=== PATIENT | female | born 1940 | race Caucasian/White ===

== ENCOUNTER 2020-01-03 12:14 | Inpatient (IN) | payer MEDICARE, OTHER ==
[2020-01-03] MEDS ORDERED: Labetalol HCl 100 MG/20 ML VIAL ONE (13:31)
--- NOTE | 2020-01-03 13:48 | RAD ---
Chest AP view INDICATION: Altered mental status COMPARISON: November 04, 2013 FINDINGS: Lungs: Chronic lung changes are stable. Cardiac silhouette: The cardiomediastinal silhouette appears within normal limits. Pulmonary vasculature: Normal Pleural spaces: No pleural effusion or pneumothorax is demonstrated. Upper abdomen: No abnormality seen. Osseous structures: No acute osseous abnormality. Additional findings: Cholecystectomy clips are present in the right upper quadrant of the abdomen. IMPRESSION: No acute cardiopulmonary abnormality.
[2020-01-03 14:03] LABS: Hemoglobin 17.5 g/dL (12.0-16.0); Mean Corpuscular HGB CONC 33.9 g/dL (32.0-36.0); Mean Corpuscular Hemoglobin 29.3 pg (27.0-31.0); Mean Corpuscular Volume 86.6 fL (78.0-98.0); Mean Platelet Volume 8.9 fL (7.4-10.4); Platelet Count 240 thou/uL (130-400); Red Blood Cell (RBC) Count 5.97 mill/uL (4.20-5.40); White Blood Cell (WBC) Count 20.9 thou/uL (4.8-10.8)
[2020-01-03 14:17] LABS: ALT (SGPT) 10 U/L (8-55); AST (SGOT) 22 U/L (5-34); Albumin 4.4 g/dL (3.4-4.8); Alkaline Phosphatase 106 U/L (40-110); Anion Gap 16 mmol/L (10-20); BUN (Urea Nitrogen) 16 mg/dL (9.8-20.1); Bilirubin, Total 1.5 mg/dL (0.2-1.2); Calc. Creatinine Clearance 0 mL/min (70-130); Calcium 9.4 mg/dL (7.8-10.44); Carbon Dioxide 22 mmol/L (23-31); Chloride 105 mmol/L (98-107); Estimated GFR-MDRD 41; Globulin 3.5 g/dL (2.4-3.5); Glucose 108 mg/dL (83-110); Protein, Total 7.9 g/dL (6.0-8.3); Sodium 140 mmol/L (136-145)
[2020-01-03 14:19] LABS: Acetaminophen Less than 6.0 mcg/mL (10.0-30.0); Alcohol Less than 10 mg/dL (Less than 10); CK (CPK) 322 U/L (29-168); Lipase 41 U/L (8-78); Salicylate Less than 8.0 mg/dL (15.0-30.0)
--- NOTE | 2020-01-03 14:24 | CT ---
CT BRAIN NONCONTRAST: DATE: 01/03/2020 HISTORY: 79-year-old female with altered mental status FINDINGS: There is no evidence of acute intra-axial or extra-axial hemorrhage. There is no midline shift or any other mass effect. There is no extra-axial fluid collection. There is no evidence of obstructive hydrocephalus. Calvarium is intact. There is a small old infarction at the inferior aspect of right c erebellar hemisphere. This was present on previous MRI of 12/27/2009. IMPRESSION: 1. No acute intracranial findings. 2. 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
[2020-01-03 14:39] LABS: Band 9 % (5-11); CKMB 4.3 ng/mL (0-6.6); Lymphocytes 4 % (21-51); MDiff Complete? YES; Monocytes 10 % (0-10); Neutrophil 71 % (42-75); Platelet Morphology Comment Appears Adequate; Polychromasia SLIGHT = 2-3 cells (100X) (0-2/hpf); Reactive Lymphocytes 6 % (0-10)
[2020-01-03 15:03] LABS: Bacteria/HPF None Seen HPF (None Seen); Bilirubin Negative (Negative); Blood, Urine 2+ (Negative); Clarity Clear (Clear); Glucose, Urine (Dipstick) 100 mg/dL (Negative); Ketone, Urine 20 mg/dL (Negative); Leukocyte Negative Leu/uL (Negative); Nitrite Negative (Negative); Protein, Urine (Dipstick) 600 mg/dL (Neg-Trace); Specific Gravity, Urine 1.018 (1.002-1.036); Squamous Epithelial None Seen HPF (0-3); Urobilinogen Normal mg/dL (Less than 2)
[2020-01-03] MEDS ORDERED: hydrALAZINE 20 MG/ML VIAL ONE (15:07)
[2020-01-03 15:08] LABS: Amphetamine Not Detected (NotDetected); Barbiturates Screen Not Detected (NotDetected); Benzodiazepine Screen Not Detected (NotDetected); Cocaine Metabolite Screen Not Detected (NotDetected); Medtox Control Line Valid? VALID (VALID); Medtox Reader # READER 4; Methadone Not Detected (NotDetected); Methamphetamine Not Detected (NotDetected); Opiate Screen Detected (NotDetected); Oxycodone Screen Not Detected (NotDetected); Phencyclidine (PCP) Not Detected (NotDetected); THC/Cannabinoid Screen Not Detected (NotDetected); Tricyclic Screen Not Detected (NotDetected)
[2020-01-03] MEDS ORDERED: Acetaminophen 650 MG Suppository PR PRN (17:14)
[2020-01-03] MEDS ORDERED: Potassium Chloride 20 MEQ in Premix Bag 1 BAG IVPB SCH ×2 (17:15→22:15)
[2020-01-03] MEDS ORDERED: Naloxone HCl 0.4 mg/ml Vial ONE (17:26)
[2020-01-03] MEDS ORDERED: Naloxone HCl 0.4 mg/ml Vial IV SCH (17:30)
[2020-01-03 17:40] LABS: Actual Bicarbonate (HCO3a) 16.6 mEq/L (22-28); Analyzer IN Cardio ER; Base Excess (BEa) -3.2 mEq/L (-2.0 to +3.0); Calcium, Ionized (arterial) 1.08 mmol/L (1.12-1.30); Carboxyhemoglobin (COHb) 0.7 gm% (0.0-3.0); Hemoglobin (Hb) 16.1 g/dL (12.0-16.0); O2 Tension (PaO2), arterial 93.8 mmHg (> 70.0); Potassium - ABG Lab 3.15 mmol/L (3.70-5.30); pH, Arterial 7.53 (7.35-7.45)
[2020-01-03 17:43] LABS: ALV-art Gradient 30.555 (0-20); CO2 Tension 20.3 mmHg (35.0-45.0); Puncture Site RRA
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
[2020-01-03 18:25] LABS: CKMB 4.2 ng/mL (0-6.6)
[2020-01-03 22:26] VITALS: BMI 25.7
[2020-01-03] MEDS: Famotidine/PF 20 mg/2ml Vial SLOW IVP SCH (22:46)
[2020-01-03 23:13] LABS: CKMB 5.8 ng/mL (0-6.6)
[2020-01-04] MEDS ORDERED: Potassium Chloride 20 MEQ TAB PO SCH (00:15)
[2020-01-04] MEDS ORDERED: Ondansetron ODT 4 MG TAB PO PRN (00:28)
[2020-01-04] MEDS: Sodium Chloride 0.9% 1,000 ML IV SCH ×2 (00:34→18:10)
[2020-01-04] MEDS: hydrALAZINE 20 MG/ML VIAL SLOW IVP PRN ×2 (00:35→08:13)
[2020-01-04 05:21] LABS: #Basophils 0.1 thou/uL (0.0-0.2); #Eosinphils 0.1 thou/uL (0.0-0.7); #Lymphocytes 3.2 thou/uL (1.20-3.40); #Monocytes 1.3 thou/uL (0.11-0.59); #Neutrophils 14.3 thou/uL (1.40-6.50); %Basophils 0.4 % (0.0-1.0); %Eosinophils 0.3 % (0.0-10.0); %Lymphocytes 16.6 % (21.0-51.0); %Monocytes 6.9 % (0.0-10.0); %Neutrophils 75.8 % (42.0-75.0); Hemoglobin 15.9 g/dL (12.0-16.0); Mean Corpuscular HGB CONC 34.3 g/dL (32.0-36.0); Mean Corpuscular Hemoglobin 29.6 pg (27.0-31.0); Mean Corpuscular Volume 86.4 fL (78.0-98.0); Mean Platelet Volume 8.5 fL (7.4-10.4); Platelet Count 227 thou/uL (130-400); RBC Distribution Width 13.2 % (11.5-14.5); Red Blood Cell (RBC) Count 5.37 mill/uL (4.20-5.40); White Blood Cell (WBC) Count 18.9 thou/uL (4.8-10.8)
[2020-01-04 06:09] LABS: ALT (SGPT) 12 U/L (8-55); AST (SGOT) 24 U/L (5-34); Albumin 4.2 g/dL (3.4-4.8); Alkaline Phosphatase 88 U/L (40-110); Anion Gap 18 mmol/L (10-20); BUN (Urea Nitrogen) 15 mg/dL (9.8-20.1); Bilirubin, Total 1.3 mg/dL (0.2-1.2); Calc. Creatinine Clearance 54 mL/min (70-130); Calcium 9.1 mg/dL (7.8-10.44); Carbon Dioxide 17 mmol/L (23-31); Chloride 108 mmol/L (98-107); Estimated GFR-MDRD 74; Glucose 115 mg/dL (83-110); Potassium 3.3 mmol/L (3.5-5.1); Protein, Total 7.2 g/dL (6.0-8.3); Sodium 140 mmol/L (136-145)
[2020-01-04] MEDS: Famotidine/PF 20 mg/2ml Vial SLOW IVP SCH (08:13)
[2020-01-04] MEDS ORDERED: cloNIDine 0.1mg/24 Hour PATCH TD SCH (09:00)
[2020-01-04] MEDS ORDERED: Labetalol HCl 100 MG/20 ML VIAL SLOW IVP SCH (09:00)
[2020-01-04] MEDS: Amlodipine 10 MG TAB PO SCH (09:19)
[2020-01-04] MEDS: Loperamide HCl 2 MG CAP PO PRN ×2 (09:45→20:18)
[2020-01-04 16:04] LABS: SARS-CoV-2 MS2 Positive; SARS-CoV-2 N Gene Negative; SARS-CoV-2 S Gene Negative; SARS-CoV-2 by NAA Not Detected (NotDetected); SARS-CoV-2 orf1ab Negative
--- NOTE | 2020-01-04 16:20 | PDOC.HOSPP ---
- Subjective Subjective: reports of having multiple episode of diarrhea. lethargy, no appetite d/w RN - Objective Vital Signs & Weight: Vital Signs (12 hours) Temp Pulse Resp BP Pulse Ox 01/04/20 15:31 98 F 104 H 16 136/82 98 01/04/20 12:08 98.1 F 102 H 29 H 153/70 H 97 01/04/20 09:21 81 162/84 H 01/04/20 09:19 81 01/04/20 07:48 98.5 F 68 18 186/90 H 94 L 01/04/20 05:56 142/82 H Weight Weight 123 lb I&O: 01/03/20 01/04/20 01/05/20 06:59 06:59 06:59 Intake Total 730 Balance 730 Result Diagrams: 01/04/20 04:58 01/04/20 04:58 Hospitalist ROS - Medication Medications: Active Medications Generic Name Dose Route Start Last Admin Trade Name Freq PRN Reason Stop Dose Admin Amlodipine Besylate 10 mg 01/04/20 09:00 01/04/20 09:19 Norvasc PO 10 mg DAILY PRABHJOT Administration Clonidine 0.1 mg 01/04/20 09:00 01/04/20 09:45 Qrejdgsr-Dpx-7 Patch TD 0.1 mg Q7DAYS PRABHJOT Administration Hydralazine HCl 10 mg 01/04/20 00:02 01/04/20 08:13 Apresoline SLOW IVP 10 mg Q4H PRN Administration SBP Greater Than 180 Sodium Chloride 1,000 mls @ 70 mls/hr 01/04/20 00:15 01/04/20 00:34 Normal Saline 0.9% IV 1,000 mls .[id number] PRABHJOT Administration Loperamide HCl 2 mg 01/04/20 09:29 01/04/20 09:45 Imodium PO 2 mg Q4H PRN Administration Diarrhea/Loose Stools Hosp A/P - Plan Physical Exam General Appearance: NAD, lethargy Eye - other findings: Bilateral pint point pupils ENT: normocephalic atraumatic Neck: supple, no lymphadenopathy Heart: RRR, no murmur, no gallops, no rubs Respiratory: CTAB, no wheezes, no rales, no ronchi, normal chest expansion Gastrointestinal: soft, non-tender, non-distended, normal bowel sounds Gastrointestinal - other findings: grimace elicited with palpation of epigastric region Extremities: no edema Skin: normal turgor, no lesions, no rashes Neurological - other findings: lethargic, responsive to sternal rub and at times loud voice Psychiatric: normal affect, normal behavior, A&O x 3 Assessment/Plan: #Acute toxic encephalopathy likely secondary to pain medications #Diarrhea #Mild Rhabdo #PARUL - resolved #Leukocytosis - trending down #HTN #GERD #Dyslipidemia #Hx of narcotic abuse #Hx of CVA #Hypokalemia - resolved. #mild Elevated trop - no chest pain 01/04/20 Will advance diet as tolerated. PT eval. Minimize narcot as much as possible. Pt has multiple episode of diarrhea, appears to be nonfectious, C diff negative , stool studies unremarkable. Continue support cares. rpt labs in AM.
[2020-01-05] MEDS: hydrALAZINE 20 MG/ML VIAL SLOW IVP PRN (03:19)
[2020-01-05] MEDS: Acetaminophen 325 MG TAB PO PRN (03:24)
[2020-01-05 05:07] LABS: ALT (SGPT) 12 U/L (8-55); AST (SGOT) 19 U/L (5-34); Albumin 3.9 g/dL (3.4-4.8); Alkaline Phosphatase 78 U/L (40-110); Anion Gap 16 mmol/L (10-20); BUN (Urea Nitrogen) 10 mg/dL (9.8-20.1); Bilirubin, Total 1.7 mg/dL (0.2-1.2); CRP (Inflammatory) Less than 0.50 mg/dL (= or < 0.5); Calc. Creatinine Clearance 58 mL/min (70-130); Calcium 8.4 mg/dL (7.8-10.44); Carbon Dioxide 20 mmol/L (23-31); Chloride 103 mmol/L (98-107); Estimated GFR-MDRD 81; Globulin 2.6 g/dL (2.4-3.5); Glucose 107 mg/dL (83-110); Magnesium 1.6 mg/dL (1.6-2.6); Protein, Total 6.5 g/dL (6.0-8.3); Sodium 136 mmol/L (136-145)
[2020-01-05 05:13] LABS: Potassium 2.7 mmol/L (3.5-5.1)
[2020-01-05 05:18] LABS: #Eosinphils 0.1 thou/uL (0.0-0.7); #Lymphocytes 4.2 thou/uL (1.20-3.40); #Monocytes 1.5 thou/uL (0.11-0.59); %Basophils 0.2 % (0.0-1.0); %Eosinophils 0.4 % (0.0-10.0); %Lymphocytes 23.7 % (21.0-51.0); %Monocytes 8.2 % (0.0-10.0); %Neutrophils 67.5 % (42.0-75.0); Mean Corpuscular HGB CONC 33.4 g/dL (32.0-36.0); Mean Corpuscular Hemoglobin 29.1 pg (27.0-31.0); Mean Platelet Volume 8.5 fL (7.4-10.4); Platelet Count 205 thou/uL (130-400); Red Blood Cell (RBC) Count 5.17 mill/uL (4.20-5.40); White Blood Cell (WBC) Count 17.7 thou/uL (4.8-10.8)
[2020-01-05] MEDS ORDERED: Potassium Chloride 20 MEQ TAB PO SCH ×2 (05:45→07:30)
[2020-01-05] MEDS ORDERED: Magnesium Sulfate 4 GM in Sodium Chloride 0.9% 250 ML 250 ML IVPB SCH (07:30)
[2020-01-05] MEDS: Gabapentin 300 MG CAP PO SCH ×3 (09:14→20:43)
[2020-01-05] MEDS: Amlodipine 10 MG TAB PO SCH (09:14)
[2020-01-05] MEDS: HYDROcodone/Acetaminophen 5/325 mg Tablet PO PRN ×2 (09:26→20:42)
[2020-01-05] MEDS: Famotidine/PF 20 mg/2ml Vial SLOW IVP SCH (09:34)
[2020-01-05] MEDS: Sodium Chloride 0.9% 1,000 ML IV SCH (09:47)
[2020-01-05 14:10] LABS: Potassium 3.7 mmol/L (3.5-5.1)
--- NOTE | 2020-01-05 14:37 | PDOC.HOSPP ---
- Subjective Subjective: Patient was seen examined at bedside. No acute events overnight. Patient reported that her diarrhea is significantly improved with Imodium. Blood pressure was elevated this morning. BP 198/87. Patient complaining of foot pain. Her white count has been trending down to 17.7. Cultures no growth. - Objective Vital Signs & Weight: Vital Signs (12 hours) Temp Pulse Resp BP Pulse Ox 01/05/20 12:00 97.5 F L 96 22 H 166/70 H 97 01/05/20 10:45 169/72 H 01/05/20 09:14 91 01/05/20 08:00 98.2 F 82 12 198/87 H 96 01/05/20 03:51 98.0 F 95 22 H 156/65 H 97 01/05/20 03:19 74 Weight Weight 123 lb I&O: 01/04/20 01/05/20 01/06/20 06:59 06:59 06:59 Intake Total 3170 Balance 3170 Result Diagrams: 01/05/20 04:30 01/05/20 13:51 Hospitalist ROS - Medication Medications: Active Medications Generic Name Dose Route Start Last Admin Trade Name Freq PRN Reason Stop Dose Admin Acetaminophen 650 mg 01/03/20 17:14 01/05/20 03:24 Tylenol PO 650 mg Q4H PRN Administration Headache/Fever/Mild Pain (1-3) Hydrocodone Bitart/Acetaminophen 1 tab 01/05/20 08:23 01/05/20 09:26 [place] 5/325 PO 1 tab Q4H PRN Administration Moderate to Severe Pain (6-10) Amlodipine Besylate 10 mg 01/04/20 09:00 01/05/20 09:14 Norvasc PO 10 mg DAILY PRABHJOT Administration Clonidine 0.1 mg 01/04/20 09:00 01/04/20 09:45 Rwdvedrg-Dem-2 Patch TD 0.1 mg Q7DAYS PRABHJOT Administration Famotidine 20 mg 01/05/20 09:00 01/05/20 09:34 Pepcid SLOW IVP 20 mg DAILY PRABHJOT Administration Gabapentin 300 mg 01/05/20 09:00 01/05/20 09:14 Neurontin PO 300 mg TID PRABHJOT Administration Hydralazine HCl 10 mg 01/04/20 00:02 01/05/20 03:19 Apresoline SLOW IVP 10 mg Q4H PRN Administration SBP Greater Than 180 Loperamide HCl 2 mg 01/04/20 09:29 01/04/20 20:18 Imodium PO 2 mg Q4H PRN Administration Diarrhea/Loose Stools Sodium Chloride 10 ml 01/03/20 17:14 01/04/20 20:18 Flush - Normal Saline IVF 10 ml Q12H PRN Administration Saline Flush Hosp A/P - Plan Physical Exam General Appearance: NAD, lethargy Eye - other findings: Bilateral pint point pupils ENT: normocephalic atraumatic Neck: supple, no lymphadenopathy Heart: RRR, no murmur, no gallops, no rubs Respiratory: CTAB, no wheezes, no rales, no ronchi, normal chest expansion Gastrointestinal: soft, non-tender, non-distended, normal bowel sounds Gastrointestinal - other findings: grimace elicited with palpation of epigastric region Extremities: no edema Skin: normal turgor, no lesions, no rashes Neurological - other findings: lethargic, responsive to sternal rub and at times loud voice Psychiatric: normal affect, normal behavior, A&O x 3 Assessment/Plan: #Acute toxic encephalopathy likely secondary to pain medications #Diarrhea - noninfectious, resolved #Mild Rhabdo #PARUL - resolved #Leukocytosis - trending down #GERD #Dyslipidemia #Hx of narcotic abuse #Hx of CVA #Hypokalemia - resolved. #mild Elevated trop - no chest pain #Hypertension, essential-blood pressure is uncontrolled #Multiple electrolyte abnormalities including hypokalemia, hypomagnesia 01/05/2020 Diarrhea is has improved. Her white count is trending down. No evidence of infections on stool study. Still have poor p.o. intake. Started on Norvasc for BP control. rpt CBC in AM. PT eval. Replete electrolytes. Follow AM labs 01/04/20 Will advance diet as tolerated. PT eval. Minimize narcotic as much as possible. Pt has multiple episode of diarrhea, appears to be nonfectious, C diff negative , stool studies unremarkable. Continue support cares. rpt labs in AM.
[2020-01-06] MEDS: HYDROcodone/Acetaminophen 5/325 mg Tablet PO PRN ×2 (03:11→14:47)
[2020-01-06 05:11] LABS: #Basophils 0.1 thou/uL (0.0-0.2); #Eosinphils 0.2 thou/uL (0.0-0.7); #Lymphocytes 3.2 thou/uL (1.20-3.40); #Neutrophils 7.3 thou/uL (1.40-6.50); %Basophils 0.7 % (0.0-1.0); %Eosinophils 1.6 % (0.0-10.0); %Lymphocytes 27.2 % (21.0-51.0); %Monocytes 8.4 % (0.0-10.0); %Neutrophils 62.1 % (42.0-75.0); Hemoglobin 14.1 g/dL (12.0-16.0); Mean Corpuscular Hemoglobin 29.6 pg (27.0-31.0); Mean Corpuscular Volume 87.1 fL (78.0-98.0); Mean Platelet Volume 8.3 fL (7.4-10.4); Platelet Count 199 thou/uL (130-400); RBC Distribution Width 13.2 % (11.5-14.5); Red Blood Cell (RBC) Count 4.75 mill/uL (4.20-5.40); White Blood Cell (WBC) Count 11.8 thou/uL (4.8-10.8)
[2020-01-06 05:31] LABS: Anion Gap 11 mmol/L (10-20); BUN (Urea Nitrogen) 9 mg/dL (9.8-20.1); Calc. Creatinine Clearance 58 mL/min (70-130); Calcium 8.2 mg/dL (7.8-10.44); Carbon Dioxide 21 mmol/L (23-31); Chloride 104 mmol/L (98-107); Estimated GFR-MDRD 81; Glucose 100 mg/dL (83-110); Magnesium 2.2 mg/dL (1.6-2.6); Sodium 133 mmol/L (136-145)
[2020-01-06] MEDS ORDERED: Potassium Chloride 20 MEQ TAB PO SCH (07:45)
[2020-01-06] MEDS: Famotidine/PF 20 mg/2ml Vial SLOW IVP SCH (08:22)
[2020-01-06] MEDS: Amlodipine 10 MG TAB PO SCH (08:22)
[2020-01-06] MEDS: Gabapentin 300 MG CAP PO SCH ×3 (08:22→21:57)
[2020-01-06] MEDS ORDERED: Sodium Chloride 0.9% 500 ML IV SCH (09:30)
[2020-01-06] MEDS: Loperamide HCl 2 MG CAP PO PRN ×2 (09:48→21:47)
--- NOTE | 2020-01-06 13:17 | PDOC.HOSPP ---
- Subjective Subjective: pt had an episode of hypotension with SBP in the 70s this AM. not feeling well. diarrhea has improved she has been eating much; but states she has more appetite today - Objective Vital Signs & Weight: Vital Signs (12 hours) Temp Pulse Resp BP BP Pulse Ox 01/06/20 11:43 98.9 F 66 16 131/59 L 97 01/06/20 10:50 116/53 L 01/06/20 08:22 65 01/06/20 08:08 70/43 L 01/06/20 08:03 109/56 L 01/06/20 07:58 98.3 F 80 12 80/41 L 96 01/06/20 03:12 97.6 F 65 18 121/53 L 99 Weight Admit Weight 123 lb Weight 123 lb I&O: 01/05/20 01/06/20 01/07/20 06:59 06:59 06:59 Intake Total 3170 581 500 Balance 3170 581 500 Result Diagrams: 01/06/20 04:51 01/06/20 04:51 Hospitalist ROS - Medication Medications: Active Medications Generic Name Dose Route Start Last Admin Trade Name Freq PRN Reason Stop Dose Admin Acetaminophen 650 mg 01/03/20 17:14 01/05/20 03:24 Tylenol PO 650 mg Q4H PRN Administration Headache/Fever/Mild Pain (1-3) Hydrocodone Bitart/Acetaminophen 1 tab 01/05/20 08:23 01/06/20 03:11 [place] 5/325 PO 1 tab Q4H PRN Administration Moderate to Severe Pain (6-10) Famotidine 20 mg 01/05/20 09:00 01/06/20 08:22 Pepcid SLOW IVP 20 mg DAILY PRABHJOT Administration Gabapentin 300 mg 01/05/20 09:00 01/06/20 08:22 Neurontin PO 300 mg TID PRABHJOT Administration Hydralazine HCl 10 mg 01/04/20 00:02 01/05/20 03:19 Apresoline SLOW IVP 10 mg Q4H PRN Administration SBP Greater Than 180 Loperamide HCl 2 mg 01/04/20 09:29 01/06/20 09:48 Imodium PO 2 mg Q4H PRN Administration Diarrhea/Loose Stools Sodium Chloride 10 ml 01/03/20 17:14 08/31/20 08:22 Flush - Normal Saline IVF 10 ml Q12H PRN Administration Saline Flush Hosp A/P - Plan Physical Exam General Appearance: NAD, lethargy Eye - other findings: Bilateral pint point pupils ENT: normocephalic atraumatic Neck: supple, no lymphadenopathy Heart: RRR, no murmur, no gallops, no rubs Respiratory: CTAB, no wheezes, no rales, no ronchi, normal chest expansion Gastrointestinal: soft, non-tender, non-distended, normal bowel sounds Gastrointestinal - other findings: grimace elicited with palpation of epigastric region Extremities: no edema Skin: normal turgor, no lesions, no rashes Neurological - other findings: lethargic, responsive to sternal rub and at times loud voice Psychiatric: normal affect, normal behavior, A&O x 3 Assessment/Plan: #Hypotension - likely d/t hypovolemia and medications #Acute toxic encephalopathy likely secondary to pain medications - resolved #Diarrhea - noninfectious, resolved #Mild Rhabdo - resolved #PARUL - resolved #Leukocytosis - trending down #GERD #Dyslipidemia #Hx of narcotic abuse #Hx of CVA #Hypokalemia - resolved. #mild Elevated trop - no chest pain #Hypertension, essential-blood pressure is uncontrolled #Multiple electrolyte abnormalities including hypokalemia, hypomagnesia 01/06/20 Give a 500 ml Bolus. Hold all BP medications. cont tele monitor. check 2D Echo to assess LV function. cont supportive cares. Hold off discharge, need to be monitored another day. 01/05/2020 Diarrhea is has improved. Her white count is trending down. No evidence of infections on stool study. Still have poor p.o. intake. Started on Norvasc for BP control. rpt CBC in AM. PT eval. Replete electrolytes. Follow AM labs 01/04/20 Will advance diet as tolerated. PT eval. Minimize narcotic as much as possible. Pt has multiple episode of diarrhea, appears to be nonfectious, C diff negative , stool studies unremarkable. Continue support cares. rpt labs in AM.
[2020-01-06] MEDS: Famotidine 20 MG TAB PO SCH (21:47)
[2020-01-06] MEDS: Acetaminophen 325 MG TAB PO PRN (21:48)
[2020-01-07] MEDS: HYDROcodone/Acetaminophen 5/325 mg Tablet PO PRN ×3 (03:17→21:05)
[2020-01-07 04:41] LABS: #Basophils 0.1 thou/uL (0.0-0.2); #Eosinphils 0.2 thou/uL (0.0-0.7); #Lymphocytes 3.9 thou/uL (1.20-3.40); #Monocytes 0.9 thou/uL (0.11-0.59); #Neutrophils 6.3 thou/uL (1.40-6.50); %Basophils 0.5 % (0.0-1.0); %Eosinophils 1.8 % (0.0-10.0); %Lymphocytes 34.4 % (21.0-51.0); %Monocytes 7.6 % (0.0-10.0); %Neutrophils 55.8 % (42.0-75.0); Hemoglobin 13.1 g/dL (12.0-16.0); Mean Corpuscular HGB CONC 33.9 g/dL (32.0-36.0); Mean Corpuscular Hemoglobin 29.5 pg (27.0-31.0); Mean Corpuscular Volume 87.1 fL (78.0-98.0); Mean Platelet Volume 8.8 fL (7.4-10.4); Platelet Count 173 thou/uL (130-400); Red Blood Cell (RBC) Count 4.43 mill/uL (4.20-5.40); White Blood Cell (WBC) Count 11.4 thou/uL (4.8-10.8)
[2020-01-07 05:24] LABS: Anion Gap 13 mmol/L (10-20); BUN (Urea Nitrogen) 12 mg/dL (9.8-20.1); Calc. Creatinine Clearance 58 mL/min (70-130); Calcium 8.3 mg/dL (7.8-10.44); Carbon Dioxide 23 mmol/L (23-31); Chloride 104 mmol/L (98-107); Estimated GFR-MDRD 81; Glucose 106 mg/dL (83-110); Potassium 3.4 mmol/L (3.5-5.1); Sodium 137 mmol/L (136-145)
[2020-01-07] MEDS: Gabapentin 300 MG CAP PO SCH ×3 (08:57→20:00)
[2020-01-07] MEDS: Famotidine 20 MG TAB PO SCH ×2 (08:57→20:00)
[2020-01-07] MEDS: Loperamide HCl 2 MG CAP PO PRN ×2 (08:57→17:12)
--- NOTE | 2020-01-07 09:09 | PDOC.HOSPP ---
- Subjective Subjective: pt noted to have recurrent pauses on tele, 2.5 sec echo pending denies any chest pain or lightheadedness - Objective Vital Signs & Weight: Vital Signs (12 hours) Temp Pulse Resp BP BP Pulse Ox 01/07/20 07:24 98.7 F 58 L 17 123/58 L 98 01/07/20 04:00 98.8 F 68 12 99/44 L 96 01/06/20 23:22 98.2 F 80 18 116/57 L 97 Weight Admit Weight 123 lb Weight 123 lb I&O: 01/06/20 01/07/20 01/08/20 06:59 06:59 06:59 Intake Total 581 3050 Balance 581 3050 Result Diagrams: 01/07/20 03:58 01/07/20 03:58 Hospitalist ROS - Medication Medications: Active Medications Generic Name Dose Route Start Last Admin Trade Name Freq PRN Reason Stop Dose Admin Acetaminophen 650 mg 01/03/20 17:14 01/06/20 21:48 Tylenol PO 650 mg Q4H PRN Administration Headache/Fever/Mild Pain (1-3) Hydrocodone Bitart/Acetaminophen 1 tab 01/05/20 08:23 01/07/20 03:17 [place] 5/325 PO 1 tab Q4H PRN Administration Moderate to Severe Pain (6-10) Famotidine 20 mg 01/06/20 21:00 01/07/20 08:57 Pepcid PO 20 mg BID PRABHJOT Administration Gabapentin 300 mg 01/05/20 09:00 01/07/20 08:57 Neurontin PO 300 mg TID PRABHJOT Administration Hydralazine HCl 10 mg 01/04/20 00:02 01/05/20 03:19 Apresoline SLOW IVP 10 mg Q4H PRN Administration SBP Greater Than 180 Loperamide HCl 2 mg 01/04/20 09:29 01/07/20 08:57 Imodium PO 2 mg Q4H PRN Administration Diarrhea/Loose Stools Sodium Chloride 10 ml 01/03/20 17:14 01/06/20 08:22 Flush - Normal Saline IVF 10 ml Q12H PRN Administration Saline Flush Hosp A/P - Plan Physical Exam General Appearance: NAD, lethargy Eye - other findings: Bilateral pint point pupils ENT: normocephalic atraumatic Neck: supple, no lymphadenopathy Heart: RRR, no murmur, no gallops, no rubs Respiratory: CTAB, no wheezes, no rales, no ronchi, normal chest expansion Gastrointestinal: soft, non-tender, non-distended, normal bowel sounds Gastrointestinal - other findings: grimace elicited with palpation of epigastric region Extremities: no edema Skin: normal turgor, no lesions, no rashes Neurological - other findings: lethargic, responsive to sternal rub and at times loud voice Psychiatric: normal affect, normal behavior, A&O x 3 Assessment/Plan: #Recurrent Pauses #Hypotension - likely d/t hypovolemia and medications. Resolved #Acute toxic encephalopathy likely secondary to pain medications - resolved #Diarrhea - noninfectious, resolved #Mild Rhabdo - resolved #PARUL - resolved #Leukocytosis - trending down #GERD #Dyslipidemia #Hx of narcotic abuse #Hx of CVA #Hypokalemia - resolved. #mild Elevated trop - no chest pain #Hypertension, essential-blood pressure is uncontrolled #Multiple electrolyte abnormalities including hypokalemia, hypomagnesia 01/07/20 Pt was noted to have recurrent pauses on tele. She is asymptomatic at present. Echo is pending. Check TSH and trop. Will consult Cardiology for further recommendations. Replace K. rpt labs in AM. Cont PT 01/06/20 Give a 500 ml Bolus. Hold all BP medications. cont tele monitor. check 2D Echo to assess LV function. cont supportive cares. Hold off discharge, need to be monitored another day. 01/05/2020 Diarrhea is has improved. Her white count is trending down. No evidence of infections on stool study. Still have poor p.o. intake. Started on Norvasc for BP control. rpt CBC in AM. PT eval. Replete electrolytes. Follow AM labs 01/04/20 Will advance diet as tolerated. PT eval. Minimize narcotic as much as possible. Pt has multiple episode of diarrhea, appears to be nonfectious, C diff negative , stool studies unremarkable. Continue support cares. rpt labs in AM.
[2020-01-07] MEDS ORDERED: Potassium Chloride 20 MEQ TAB PO SCH (09:15)
[2020-01-07 10:03] LABS: Troponin I 0.066 ng/mL (< 0.028)
--- NOTE | 2020-01-07 12:32 | CON ---
DATE OF CONSULTATION: HISTORY OF PRESENT ILLNESS: The patient is a 79-year-old woman, who presented with disorientation and was found to have had a prolonged pause on telemetry monitoring. The patient has no previous cardiac history. The patient denies any history of losing consciousness. She apparently was in her car and was found to be disoriented. She reports that she did not lose consciousness. The patient was brought to the emergency room and was found to be markedly hypertensive. The patient denies having any chest discomfort. PAST MEDICAL HISTORY: 1. Hypertension. 2. History of CVA. 3. Chronic back pain. 4. GE reflux. 5. Neuropathy. PAST SURGICAL HISTORY: Cholecystectomy, hysterectomy, tonsillectomy,and lumbar spinal surgery. SOCIAL HISTORY: Smokes one pack per day. FAMILY HISTORY: No strong family history of heart disease. MEDICATIONS: 1. Morphine 30 mg p.o. t.i.d. 2. Gabapentin 300 mg t.i.d. ALLERGIES: SHE IS ALLERGIC TO PENICILLIN. REVIEW OF SYSTEMS: Ten-point system otherwise unremarkable. No history of easy bruising, bleeding, or bright red blood per rectum. PHYSICAL EXAMINATION: GENERAL: Thin woman with poor dentition. VITAL SIGNS: Blood pressure 123/58, heart rate is 58. NECK: No jugular venous distention. LUNGS: Decreased breath sounds bilaterally. HEART: Regular rate and rhythm. Normal S1 and S2. No murmurs. ABDOMEN: Nondistended. EXTREMITIES: Showed trace edema. VASCULAR: Radial pulse 2+. LABORATORY DATA:sodium was 137, potassium 3.4, chloride 104, bicarbonate 23, BUN 12, and creatinine 0.7. Glucose was 81. Troponin 0.06. White blood cell count 11.4, hemoglobin 13.1, hematocrit 38.6, and platelets are 173. EKG normal sinus rhythm with a prolonged QT interval and frequent premature ectopic complexes. classroom monitor revealed multifocal atrial tachycardia with several pauses up to 2.4 seconds, suggestive of second-degree Mobitz type 1 heart block and blocked PACs. IMPRESSION: 1. Opiate overdose. 2. Prolonged pauses, probably suggestive of second-degree AV block type 1 and blocked premature atrial contractions. 3. Multifocal atrial tachycardia. 4. Hypertensive crisis. 5. Tobacco abuse. This patient has had 2.4-second pause. This appears to be a second-degree block , Mobitz type 1. The patient's symptoms did not appear to be suggestive of the cause of her disorientation, but more likely due to morphine overdose. From a cardiac standpoint, we will continue to monitor on telemetry. We will check the patient 's echocardiogram. We will consider a LINQ placement if she becomes symptomatic. We will follow this patient with you through her hospitalization. Job ID: [id number] [id number]
[2020-01-07] MEDS: Acetaminophen 325 MG TAB PO PRN (17:12)
[2020-01-08 04:53] LABS: #Basophils 0.1 thou/uL (0.0-0.2); #Eosinphils 0.3 thou/uL (0.0-0.7); #Lymphocytes 3.9 thou/uL (1.20-3.40); #Monocytes 0.8 thou/uL (0.11-0.59); #Neutrophils 5.3 thou/uL (1.40-6.50); %Eosinophils 2.4 % (0.0-10.0); %Neutrophils 50.6 % (42.0-75.0); Hemoglobin 13.1 g/dL (12.0-16.0); Mean Corpuscular HGB CONC 33.2 g/dL (32.0-36.0); Mean Corpuscular Hemoglobin 29.1 pg (27.0-31.0); Mean Corpuscular Volume 87.6 fL (78.0-98.0); Mean Platelet Volume 8.6 fL (7.4-10.4); Platelet Count 170 thou/uL (130-400); Red Blood Cell (RBC) Count 4.52 mill/uL (4.20-5.40); White Blood Cell (WBC) Count 10.4 thou/uL (4.8-10.8)
[2020-01-08] MEDS: HYDROcodone/Acetaminophen 5/325 mg Tablet PO PRN ×2 (05:10→15:47)
[2020-01-08 05:20] LABS: Anion Gap 12 mmol/L (10-20); BUN (Urea Nitrogen) 9 mg/dL (9.8-20.1); Calc. Creatinine Clearance 60 mL/min (70-130); Calcium 8.5 mg/dL (7.8-10.44); Carbon Dioxide 25 mmol/L (23-31); Chloride 105 mmol/L (98-107); Estimated GFR-MDRD 84; Glucose 100 mg/dL (83-110); Magnesium 1.9 mg/dL (1.6-2.6); Sodium 138 mmol/L (136-145)
[2020-01-08] MEDS: Famotidine 20 MG TAB PO SCH (09:42)
[2020-01-08] MEDS: Gabapentin 300 MG CAP PO SCH ×2 (09:42→15:45)
--- NOTE | 2020-01-08 14:03 | PDOC.HOSPP ---
- Subjective Subjective: no recurrent pause noted on tele. feeling better today. - Objective Vital Signs & Weight: Vital Signs (12 hours) Temp Pulse Resp BP Pulse Ox 01/08/20 11:20 98.3 F 73 20 128/59 L 98 01/08/20 07:26 98.3 F 71 13 124/54 L 95 01/08/20 04:00 98.7 F 70 18 135/61 98 Weight Admit Weight 123 lb Weight 123 lb I&O: 01/07/20 01/08/20 01/09/20 06:59 06:59 06:59 Intake Total 3050 665 Balance 3050 665 Result Diagrams: 01/08/20 04:35 01/08/20 04:35 Hospitalist ROS - Medication Medications: Active Medications Generic Name Dose Route Start Last Admin Trade Name Freq PRN Reason Stop Dose Admin Acetaminophen 650 mg 01/03/20 17:14 01/07/20 17:12 Tylenol PO 650 mg Q4H PRN Administration Headache/Fever/Mild Pain (1-3) Hydrocodone Bitart/Acetaminophen 1 tab 01/05/20 08:23 01/08/20 05:10 [place] 5/325 PO 1 tab Q4H PRN Administration Moderate to Severe Pain (6-10) Famotidine 20 mg 01/06/20 21:00 01/08/20 09:42 Pepcid PO 20 mg BID PRABHJOT Administration Gabapentin 300 mg 01/05/20 09:00 01/08/20 09:42 Neurontin PO 300 mg TID PRABHJOT Administration Hydralazine HCl 10 mg 01/04/20 00:02 01/05/20 03:19 Apresoline SLOW IVP 10 mg Q4H PRN Administration SBP Greater Than 180 Loperamide HCl 2 mg 01/04/20 09:29 01/07/20 17:12 Imodium PO 2 mg Q4H PRN Administration Diarrhea/Loose Stools Sodium Chloride 10 ml 01/03/20 17:14 01/06/20 08:22 Flush - Normal Saline IVF 10 ml Q12H PRN Administration Saline Flush Hosp A/P - Plan Physical Exam General Appearance: NAD, lethargy Eye - other findings: Bilateral pint point pupils ENT: normocephalic atraumatic Neck: supple, no lymphadenopathy Heart: RRR, no murmur, no gallops, no rubs Respiratory: CTAB, no wheezes, no rales, no ronchi, normal chest expansion Gastrointestinal: soft, non-tender, non-distended, normal bowel sounds Gastrointestinal - other findings: grimace elicited with palpation of epigastric region Extremities: no edema Skin: normal turgor, no lesions, no rashes Neurological - other findings: lethargic, responsive to sternal rub and at times loud voice Psychiatric: normal affect, normal behavior, A&O x 3 Assessment/Plan: #Recurrent Pauses - possible Mobitz Type I #Hypotension - likely d/t hypovolemia and medications. Resolved #Acute toxic encephalopathy likely secondary to pain medications - resolved #Diarrhea - noninfectious, resolved #Mild Rhabdo - resolved #PARUL - resolved #Leukocytosis - trending down #GERD #Dyslipidemia #Hx of narcotic abuse #Hx of CVA #Hypokalemia - resolved. #mild Elevated trop - no chest pain #Hypertension, essential-blood pressure is uncontrolled #Multiple electrolyte abnormalities including hypokalemia, hypomagnesia 01/08/20 Electrolytes have been corrected. No further pause noted overnight. Feeling better. Pending further input from Cardiology, whether a loop recorder is needed. cont current mgt, home when OK with cardiology. Appreciate input. 01/07/20 Pt was noted to have recurrent pauses on tele. She is asymptomatic at present. Echo is pending. Check TSH and trop. Will consult Cardiology for further recommendations. Replace K. rpt labs in AM. Cont PT 01/06/20 Give a 500 ml Bolus. Hold all BP medications. cont tele monitor. check 2D Echo to assess LV function. cont supportive cares. Hold off discharge, need to be monitored another day. 01/05/2020 Diarrhea is has improved. Her white count is trending down. No evidence of infections on stool study. Still have poor p.o. intake. Started on Norvasc for BP control. rpt CBC in AM. PT eval. Replete electrolytes. Follow AM labs 01/04/20 Will advance diet as tolerated. PT eval. Minimize narcotic as much as possible. Pt has multiple episode of diarrhea, appears to be nonfectious, C diff negative , stool studies unremarkable. Continue support cares. rpt labs in AM.
[2020-01-08 15:32] VITALS: BP 123/58; TEMP 97.8
--- NOTE | 2020-01-08 17:44 | DIS ---
DATE OF ADMISSION: 01/06/2020 DATE OF DISCHARGE: 01/08/2020 DISCHARGE DIAGNOSES: 1. Acute toxic encephalopathy secondary to pain medication, resolved. 2. Recurrent pause - possible Mobitz 1. 3. Hypotension secondary to hypovolemia and medication, resolved. 4. Diarrhea, non-infectious, resolved. 5. Mild rhabdomyolysis, resolved. 6. Acute kidney injury, resolved. 7. Leukocytosis, resolved. 8. Hypokalemia, corrected. 9. Dyslipidemia. 10. History of narcotic dependence disorders. 11. History of cerebrovascular accident. 12. Mildly elevated troponins. 13. Hypertension. 14. Multiple electrolyte abnormalities including hypokalemia and hypomagnesemia - corrected. CONSULTATIONS: Cardiology, Dr. Lopez and Dr. Fairbanks. PROCEDURES: None. LABORATORY DATA AND IMAGING STUDIES: WBC 10.4, hemoglobin 13.1, hematocrit 39.6 , platelets 170. Chemistry; sodium 138, potassium 4.0, carbon dioxide 25, BUN 11, creatinine 0.68. Troponin 0.06. TSH 1.31. Urine drug screen positive for opiates. UA was negative. Stool culture was negative for C diff. Parasite cultures, no growth. Urine cultures, no growth. COVID PCR was negative. HISTORY OF PRESENT ILLNESS AND BRIEF HOSPITAL COURSE: The patient is a pleasant 79-year-old female who has significant past medical history of chronic back pain; opioid dependence, she is on morphine for the past 20 years; GERD; hyperlipidemia; hypertension; history of CVA; peripheral neuropathy, who was transferred from outside facility ER after she was found passed out in her car. The patient was found lethargic, only responsive to sternal rub. She was brought in by EMS. Initial workup in the ED, chest x-ray was unremarkable as well as CT head was negative for acute intracranial abnormalities. The patient was subsequently admitted to hospitalist service for acute toxic encephalopathy, likely secondary to opiate. Urine drug screen is positive for opiates. The patient is on prescription morphine. She reports that she has been taking this medication for the past 20 years. The patient was monitored on tele. Her mental status slowly returned to baseline. During her hospital stay, the patient had multiple episodes of diarrhea, which was non-infectious. She had C diff negative as well as stool studies were unremarkable. Resolved with conservative management. She also had multiple electrolyte abnormalities, which all have been corrected prior to discharge. She was monitored on tele. She was found to have recurrent pauses with the longest around 2.5. It appeared to be Mobitz type 1. For that reason, Cardiology was consulted. The patient was initially seen by Dr. Lopez and followed by her primary profile saw setup operator, Dr. Fairbanks. Her echo appeared to have preserved EF. She was continued to be monitored on tele. There was no recurrence after her electrolytes have been corrected. She also had an episode of hypotension, likely due to hypovolemia, and has responded well with IV fluids. Her blood pressure since then had been stabilized. She had been working with Physical Therapy without any problem. At this time, Cardiology recommends Holter monitor and followup as outpatient. She is cleared to discharge from Cardiology standpoint. The patient was counseled with regard to avoid narcotic use. Recommend to follow up with her PCP and pain specialist to continue wean her off on morphine. The patient verbalized understanding. DISPOSITION: The patient is stable to discharge home. ACTIVITY: As tolerated. DIET: Cardiac diet. FOLLOWUP CARE: The patient was advised to follow up with her PCP in 1 to 2 weeks and follow up with Dr. Fairbanks as scheduled. PHYSICAL EXAMINATION: VITAL SIGNS: Blood pressure 123/58, temperature is 97.8, heart rate 67, respiratory rate 16. The patient is saturating 98% on room air. GENERAL APPEARANCE: The patient is alert and oriented x3. Normal affect. HEENT: Mucous membranes are moist. NECK: Supple. No lymphadenopathy. No JVD. CARDIOVASCULAR: Regular rate and rhythm. S1 and S2 noted. No murmur. PULMONOLOGY: Clear to auscultation bilaterally. ABDOMEN: Soft, nontender, nondistended. Positive bowel sounds. EXTREMITIES: No edema. SKIN: No rash. NEUROLOGIC: Cranial nerves 2 through 12 grossly intact. No focal weakness. PSYCHIATRIC: The patient is alert and oriented x3 with normal affect. DISCHARGE MEDICATIONS: Resume her home medication including, 1. Gabapentin 300 mg t.i.d. 2. Morphine IR 15 mg t.i.d. We have been stressed and counseled the patient with regard to the need to have close followup with her PCP and pain specialist, and continue to wean her off morphine. The patient verbalized understanding. Thank you for allowing us to participate in the care of this patient. Discharge Time Spent: 35 min Job ID: [id number] [facility]
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
== END 2020-01-08 18:32 | disposition home or self-care (01) | DRG 896 ==
LOC: ERS 12:14 → 2SE 17:41 → OBSVTOIN 01-06 09:25 → 2SE 01-07 20:39
PROVIDERS: ADMIT Internal Medicine; ATTEND Internal Medicine
DX: F11.229 Opioid dependence with intoxication, unspecified (principal); G92 Toxic encephalopathy; M62.82 Rhabdomyolysis; N17.9 Acute kidney failure, unspecified; I16.9 Hypertensive crisis, unspecified; Z20.828 Contact with and (suspected) exposure to other viral communicable diseases; M54.5 Low back pain; G89.29 Other chronic pain; E78.5 Hyperlipidemia, unspecified; I10 Essential (primary) hypertension; G62.9 Polyneuropathy, unspecified; F17.210 Nicotine dependence, cigarettes, uncomplicated; K21.9 Gastro-esophageal reflux disease without esophagitis; E86.0 Dehydration; D72.829 Elevated white blood cell count, unspecified; E87.6 Hypokalemia; E86.1 Hypovolemia; I44.1 Atrioventricular block, second degree; E83.42 Hypomagnesemia; Z88.0 Allergy status to penicillin; Z86.73 Personal history of transient ischemic attack (TIA), and cerebral infarction without residual deficits; Z90.49 Acquired absence of other specified parts of digestive tract; Z90.710 Acquired absence of both cervix and uterus; R19.7 Diarrhea, unspecified
CPT/HCPCS: 36415; 51701; 70450; 71045; 80048; 80053; 80306; 80307; 81003; 81015; 82140; 82550; 82553; 82805; 83605; 83630; 83690; 83735; 84443; 84484; 85025; 86140; 87040; 87045; 87046; 87086; 87324; 87328; 87329; 87427; 87449; 87635; 87804; 93005; 93306; 96361; 96374; 96375; 96376; G0378; J0360; J2310; J3475; J3480; J7050; S0028; U0003

== ENCOUNTER 2020-03-02 13:06 | Outpatient (CLI) | payer MEDICARE ==
[~2020-03-02 13:06] MED LIST: Iopamidol 370 76% 100 ML VIAL ONE
--- NOTE | 2020-03-02 14:04 | CT ---
CT arteriogram neck with IV contrast and 3-D imaging HISTORY: Vascular disease. Abnormal sonogram. Carotid stenosis. FINDINGS: Normal branching of the great vessels at the aortic arch. Mild calcification and noncalcifi ed plaque, with mild stenosis of the right subclavian artery. Good flow into each carotid and vertebral system. Hemostasis clips around the right carotid bifurcation suggests prior endarterectomy. No significant s tenosis. On the left, there is calcification and noncalcified plaque with a short segment focus of stenosis, e stimated at greater than 70%, within the proximal internal carotid artery. Good flow and return to normal caliber distally. External carotid artery is patent. Nonspecific peripheral interstitial thickening is present at the lung apices. Tiny nonspecific cystic nodules are scattered about each thyroid lobe. IMPRESSION : Atherosclerosis. Short segment focus of high-grade stenosis within the proximal left internal carotid artery. Prior right carotid endarterectomy. ICA is patent.
== END 2020-03-02 13:07 | disposition home or self-care (01) ==
LOC: CT 13:06
PROVIDERS: ATTEND Internal Medicine Cardiovascular Disease
DX: I65.23 Occlusion and stenosis of bilateral carotid arteries (principal); I70.90 Unspecified atherosclerosis; Z98.890 Other specified postprocedural states
CPT/HCPCS: 70498; 82565; Q9967

== ENCOUNTER 2021-01-09 18:21 | Emergency (ER) | payer MEDICARE ==
[2021-01-09] MEDS ORDERED: Morphine IR Tab 15 MG TAB PO SCH (19:00)
== END 2021-01-09 20:02 | disposition home or self-care (01) ==
LOC: ERS 18:21
DX: F11.23 Opioid dependence with withdrawal (principal); K21.9 Gastro-esophageal reflux disease without esophagitis; E78.5 Hyperlipidemia, unspecified; E78.00 Pure hypercholesterolemia, unspecified; I10 Essential (primary) hypertension; F17.210 Nicotine dependence, cigarettes, uncomplicated; Z86.73 Personal history of transient ischemic attack (TIA), and cerebral infarction without residual deficits; Z79.899 Other long term (current) drug therapy
CPT/HCPCS: 99283

== ENCOUNTER 2021-02-06 15:25 | Emergency (ER) | payer MEDICARE ==
[2021-02-06] MEDS ORDERED: Morphine IR Tab 15 MG TAB PO SCH (19:00)
== END 2021-02-06 18:59 | disposition home or self-care (01) ==
LOC: ERS 15:25
DX: F11.23 Opioid dependence with withdrawal (principal); K21.9 Gastro-esophageal reflux disease without esophagitis; E78.5 Hyperlipidemia, unspecified; E78.00 Pure hypercholesterolemia, unspecified; I10 Essential (primary) hypertension; G62.9 Polyneuropathy, unspecified; F17.210 Nicotine dependence, cigarettes, uncomplicated; Z79.899 Other long term (current) drug therapy
CPT/HCPCS: 99283

== ENCOUNTER 2021-02-08 13:07 | Inpatient (IN) | payer MEDICARE ==
[~2021-02-08 13:07] MED LIST changes: -Iopamidol 370 76% 100 ML VIAL ONE; +Iopamidol-370 76% 500 ML 1 ML ONE
[2021-02-08] MEDS ORDERED: Propofol 1,000 MG/100 ML VIAL IV ONE (14:13)
[2021-02-08] MEDS ORDERED: Fentanyl 100 MCG/2 ML VIAL ONE (14:23)
[2021-02-08] MEDS ORDERED: Boostrix 0.5 ML (Tdap) VIAL ONE (14:25)
[2021-02-08] MEDS ORDERED: ceFAZolin 2 GM/DEX 5% 100 ML BAG ONE (14:25)
[2021-02-08 14:36] LABS: Hemoglobin 13.9 g/dL (12.0-16.0); Mean Corpuscular HGB CONC 34.8 g/dL (32.0-36.0); Mean Corpuscular Hemoglobin 32.3 pg (27.0-31.0); Mean Corpuscular Volume 92.9 fL (78.0-98.0); Mean Platelet Volume 8.7 fL (7.4-10.4); Platelet Count 195 thou/uL (130-400); RBC Distribution Width 12.1 % (11.5-14.5); Red Blood Cell (RBC) Count 4.29 mill/uL (4.20-5.40); White Blood Cell (WBC) Count 23.6 thou/uL (4.8-10.8)
[2021-02-08] MEDS ORDERED: Ketamine 50 MG/ML (10ML VIAL) ONE (14:37)
[2021-02-08] MEDS ORDERED: Ketamine 50 MG/ML (10ML VIAL) SLOW IVP SCH (14:45)
[2021-02-08] MEDS ORDERED: Fentanyl CADD 100 ML IV SCH ×2 (14:45→19:45)
[2021-02-08 14:46] LABS: INR-International Normal Ratio 1.5; Prothrombin Time 18.6 sec (12.0-14.7)
[2021-02-08] MEDS ORDERED: Dextrose 5% in Water 1,000 ML IV PRN (14:46)
[2021-02-08] MEDS ORDERED: Ondansetron PF 4 MG/2 ML Vial IVP PRN (14:46)
[2021-02-08] MEDS ORDERED: Morphine 2 MG/ML VIAL SLOW IVP PRN ×2 (14:46→19:45)
[2021-02-08] MEDS ORDERED: Dextrose 50% Abboject 50 ML SYRINGE SLOW IVP PRN (14:46)
[2021-02-08] MEDS ORDERED: Promethazine HCl 25 MG/ML VIAL IM PRN (14:46)
[2021-02-08 14:54] LABS: Band 3 % (5-11); Lymphocytes 9 % (21-51); MDiff Complete? YES; Monocytes 1 % (0-10); Neutrophil 87 % (42-75); Platelet Morphology Comment Appears Adequate; RBC Morphology Normal
[2021-02-08 14:55] LABS: Acetaminophen Less than 6.0 mcg/mL (10.0-30.0); Alcohol Less than 10 mg/dL (Less than 10); Salicylate Less than 8.0 mg/dL (15.0-30.0)
[2021-02-08 14:56] LABS: Actual Bicarbonate (HCO3a) 14.2 mEq/L (22-28); Analyzer IN Cardio ER; Base Excess (BEa) -10.4 mEq/L (-2.0 to +3.0); CO2 Tension 28.5 mmHg (35.0-45.0); Calcium, Ionized (arterial) 1.06 mmol/L (1.12-1.30); Carboxyhemoglobin (COHb) 0.3 gm% (0.0-3.0); Hemoglobin (Hb) 14.5 g/dL (12.0-16.0); O2 Tension (PaO2), arterial 145.3 mmHg (> 70.0); Potassium - ABG Lab 3.33 mmol/L (3.70-5.30); Puncture Site LRA; pH, Arterial 7.31 (7.35-7.45)
[2021-02-08 14:57] LABS: ALV-art Gradient 532.075 mmHg (0-20)
[2021-02-08] MEDS ORDERED: hydrALAZINE 20 MG/ML VIAL ONE (14:58)
[2021-02-08] MEDS ORDERED: Labetalol HCl 100 MG/20 ML VIAL ONE (14:59)
[2021-02-08] MEDS ORDERED: niCARdipine 20MG In NaCl 20 MG/200 ML BAG ONE (15:00)
[2021-02-08] MEDS ORDERED: Diltiazem 125 MG/25 ML ONE (15:02)
[2021-02-08 15:11] LABS: ALT (SGPT) 13 U/L (8-55); AST (SGOT) 31 U/L (5-34); Albumin 3.4 g/dL (3.4-4.8); Alcohol Less than 10 mg/dL (Less than 10); Alkaline Phosphatase 68 U/L (40-110); Anion Gap 22 mmol/L (10-20); BUN (Urea Nitrogen) 35 mg/dL (9.8-20.1); Bilirubin, Total 1.3 mg/dL (0.2-1.2); Calc. Creatinine Clearance 0 mL/min (70-130); Calcium 8.4 mg/dL (7.8-10.44); Carbon Dioxide 17 mmol/L (23-31); Chloride 111 mmol/L (98-107); Globulin 2.2 g/dL (2.4-3.5); Glucose 289 mg/dL (83-110); Potassium 3.4 mmol/L (3.5-5.1); Protein, Total 5.6 g/dL (5.8-8.1); Sodium 147 mmol/L (136-145)
[2021-02-08 15:39] LABS: Amphetamine Not Detected (NotDetected); Bacteria/HPF None Seen HPF (None Seen); Barbiturates Screen Not Detected (NotDetected); Benzodiazepine Screen Not Detected (NotDetected); Bilirubin Negative (Negative); Blood, Urine 2+ (Negative); Clarity Clear (Clear); Cocaine Metabolite Screen Not Detected (NotDetected); Glucose, Urine (Dipstick) 30 mg/dL (Negative); Ketone, Urine 20 mg/dL (Negative); Leukocyte Negative Leu/uL (Negative); Methadone Not Detected (NotDetected); Methamphetamine Not Detected (NotDetected); Nitrite Negative (Negative); Opiate Screen Detected (NotDetected); Oxycodone Screen Not Detected (NotDetected); Phencyclidine (PCP) Not Detected (NotDetected); Protein, Urine (Dipstick) 100 mg/dL (Neg-Trace); RBC/HPF 0-3 HPF (0-3); Specific Gravity, Urine 1.017 (1.002-1.036); Squamous Epithelial 0-3 HPF (0-3); THC/Cannabinoid Screen Not Detected (NotDetected); Tricyclic Screen Not Detected (NotDetected); Urobilinogen Normal mg/dL (Less than 2); WBC/HPF 0-3 HPF (0-3); pH, Urine 5.5 (5.0-9.0)
[2021-02-08] MEDS ORDERED: Potassium Phosphate 30 MMOL in Sodium Chloride 0.9% 500 ML IVPB SCH (16:00)
[2021-02-08 16:23] LABS: Magnesium 1.7 mg/dL (1.6-2.6)
[2021-02-08] MEDS: Sodium Chloride 0.9% 1,000 ML IV SCH (17:25)
[2021-02-08 17:49] LABS: Lactic Acid 2.5 mmol/L (0.5-2.2)
[2021-02-08 17:58] LABS: SARS-CoV-2 NAA Rapid Test Not Detected (NotDetected)
[2021-02-08] MEDS ORDERED: niCARdipine 25 MG in Sodium Chloride 0.9% 250 ML 240 ML IVPB SCH (18:00)
[2021-02-08] MEDS ORDERED: Calcium Chloride 1 GM/10 ML Abboject SYRINGE IVP SCH (18:00)
[2021-02-08] MEDS ORDERED: Diltiazem HCl 125 MG, Admixture Fee 1 EACH in Sodium Chloride 0.9% 100 ML IVPB SCH (18:00)
[2021-02-08] MEDS ORDERED: Labetalol HCl 100 MG/20 ML VIAL SLOW IVP SCH (18:00)
[2021-02-08] MEDS ORDERED: Acetaminophen 650 MG/20.3 ML UDCUP PO SCH (19:00)
[2021-02-08] MEDS ORDERED: Lorazepam 2 MG/ML VIAL ONE (19:25)
[2021-02-08] MEDS ORDERED: Midazolam HCl 2 mg/2 ml Vial ONE ×3 (19:28→23:06)
[2021-02-08] MEDS ORDERED: Propofol BOLUS 1,000 MG/100 ML VIAL IV PRN (19:45)
[2021-02-08] MEDS ORDERED: DISCONTINUE PREVIOUS NARCOTIC PAIN MEDICATIONS AND BENZODIAZEPINES FS SCH (19:45)
[2021-02-08] MEDS ORDERED: Fentanyl BOLUS 250 ML IVPB PRN (19:45)
[2021-02-08] MEDS ORDERED: Propofol 1,000 MG/100 ML VIAL IV PRN (19:45)
[2021-02-08] MEDS ORDERED: Midazolam HCl 2 mg/2 ml Vial SLOW IVP SCH ×2 (20:00→23:00)
[2021-02-08] MEDS ORDERED: Famotidine/PF 20 mg/2ml Vial SLOW IVP SCH (21:00)
[2021-02-08] MEDS: HumaLOG 300 UNITS/3 ML VIAL SC PRN (21:20)
[2021-02-08] MEDS ORDERED: Magnesium 2 GM/50 ML 2 GM in Premix Bag 1 BAG IVPB SCH (22:00)
[2021-02-08 22:44] LABS: Bilirubin Negative (Negative); Blood, Urine 2+ (Negative); Clarity Clear (Clear); Glucose, Urine (Dipstick) Normal (Negative); Ketone, Urine Negative (Negative); Leukocyte Negative Leu/uL (Negative); Nitrite Negative (Negative); Protein, Urine (Dipstick) 70 mg/dL (Neg-Trace); Squamous Epithelial 0-3 HPF (0-3); Urobilinogen Normal mg/dL (Less than 2); WBC/HPF 0-3 HPF (0-3); pH, Urine 5.5 (5.0-9.0)
[2021-02-08 22:50] LABS: Bacteria/HPF 1+ HPF (None Seen)
[2021-02-08 22:51] LABS: Specific Gravity, Urine 1.045 (1.002-1.036)
[2021-02-08 22:53] LABS: Urine Culture Reflex Yes Yes
[2021-02-08] MEDS: hydrALAZINE 20 MG/ML VIAL SLOW IVP PRN (23:06)
[2021-02-09] MEDS: Clindamycin/D5W 600 MG in Premix Bag 1 BAG IVPB SCH ×2 (00:27→06:28)
[2021-02-09] MEDS: Sodium Chloride 0.9% 1,000 ML IV SCH (00:28)
[2021-02-09] MEDS ORDERED: FLU VACC QS2021-22(65YR UP)/PF 240 MCG/0.7 ML SYRINGE IM ONE (01:15)
[2021-02-09] MEDS ORDERED: Midazolam HCl 2 mg/2 ml Vial SLOW IVP PRN (02:41)
[2021-02-09] MEDS ORDERED: Sodium Chloride 0.9% 1,000 ML IV SCH (02:48)
[2021-02-09] MEDS ORDERED: Norepinephrine 4 MG/4 ML VIAL ONE (03:12)
[2021-02-09] MEDS: HumaLOG 300 UNITS/3 ML VIAL SC PRN (04:21)
[2021-02-09] MEDS: hydrALAZINE 20 MG/ML VIAL SLOW IVP PRN ×2 (04:28→08:23)
[2021-02-09 04:47] LABS: #Basophils 0.1 thou/uL (0.0-0.2); #Monocytes 1.7 thou/uL (0.11-0.59); #Neutrophils 19.6 thou/uL (1.40-6.50); %Basophils 0.3 % (0.0-1.0); %Eosinophils 0.1 % (0.0-10.0); %Lymphocytes 15.9 % (21.0-51.0); %Monocytes 6.6 % (0.0-10.0); %Neutrophils 77.2 % (42.0-75.0); Hemoglobin 14.1 g/dL (12.0-16.0); Mean Corpuscular HGB CONC 33.1 g/dL (32.0-36.0); Mean Corpuscular Hemoglobin 30.2 pg (27.0-31.0); Mean Corpuscular Volume 91.3 fL (78.0-98.0); Mean Platelet Volume 9.3 fL (7.4-10.4); Platelet Count 114 thou/uL (130-400); RBC Distribution Width 13.8 % (11.5-14.5); Red Blood Cell (RBC) Count 4.67 mill/uL (4.20-5.40); White Blood Cell (WBC) Count 25.3 thou/uL (4.8-10.8)
[2021-02-09 04:58] LABS: Anion Gap 15 mmol/L (10-20); BUN (Urea Nitrogen) 28 mg/dL (9.8-20.1); Calc. Creatinine Clearance 39 mL/min (70-130); Calcium 8.3 mg/dL (7.8-10.44); Carbon Dioxide 19 mmol/L (23-31); Chloride 116 mmol/L (98-107); Glucose 182 mg/dL (83-110); Potassium 3.3 mmol/L (3.5-5.1); Sodium 147 mmol/L (136-145)
[2021-02-09 04:59] LABS: INR-International Normal Ratio 1.4; Prothrombin Time 17.5 sec (12.0-14.7)
[2021-02-09 05:00] LABS: PTT 32.6 sec (22.9-36.1)
[2021-02-09 07:06] LABS: Magnesium 2.3 mg/dL (1.6-2.6)
[2021-02-09] MEDS ORDERED: Potassium Phosphate 30 MMOL in Sodium Chloride 0.9% 250 ML 250 ML IVPB SCH (08:30)
[2021-02-09 08:44] LABS: Actual Bicarbonate (HCO3a) 14.8 mEq/L (22-28); Base Excess (BEa) -5.8 mEq/L (-2.0 to +3.0); Calcium, Ionized (arterial) 1.13 mmol/L (1.12-1.30); Carboxyhemoglobin (COHb) 0.3 gm% (0.0-3.0); Hemoglobin (Hb) 14.8 g/dL (12.0-16.0); O2 Tension (PaO2), arterial 107.6 mmHg (> 70.0); Potassium - ABG Lab 3.09 mmol/L (3.70-5.30); pH, Arterial 7.49 (7.35-7.45)
[2021-02-09 08:46] LABS: ALV-art Gradient 152.975 mmHg (0-20); CO2 Tension 19.7 mmHg (35.0-45.0); Puncture Site LRA
[2021-02-09] MEDS: Lactated Ringer's 1,000 ML IV SCH ×2 (08:57→21:55)
[2021-02-09 09:06] LABS: Hemoglobin A1c 5.3 % (4.0-6.0)
[2021-02-09] MEDS ORDERED: Calcium Chloride 13.6 MEQ in Sodium Chloride 0.9% 100 ML IVPB SCH (14:30)
[2021-02-09] MEDS: ceFAZolin Sodium/D5W 2 GM in Premix Bag 1 BAG IVPB SCH ×2 (14:32→21:37)
[2021-02-09] MEDS: Lorazepam 2 MG/ML VIAL SLOW IVP PRN ×2 (15:40→21:55)
[2021-02-09] MEDS ORDERED: Fentanyl CADD 100 ML ONE (16:09)
[2021-02-09] MEDS: Famotidine/PF 20 mg/2ml Vial SLOW IVP SCH (20:41)
[2021-02-10] MEDS: Acetaminophen 650 MG/20.3 ML UDCUP PO SCH ×4 (00:33→16:45)
[2021-02-10 04:23] LABS: #Lymphocytes 3.9 thou/uL (1.20-3.40); #Monocytes 1.1 thou/uL (0.11-0.59); #Neutrophils 12.4 thou/uL (1.40-6.50); %Basophils 0.1 % (0.0-1.0); %Eosinophils 0.2 % (0.0-10.0); %Lymphocytes 22.3 % (21.0-51.0); %Monocytes 6.2 % (0.0-10.0); %Neutrophils 71.4 % (42.0-75.0); Hemoglobin 11.7 g/dL (12.0-16.0); Mean Corpuscular HGB CONC 34.5 g/dL (32.0-36.0); Mean Corpuscular Hemoglobin 31.5 pg (27.0-31.0); Mean Corpuscular Volume 91.2 fL (78.0-98.0); Mean Platelet Volume 9.7 fL (7.4-10.4); Platelet Count 86 thou/uL (130-400); RBC Distribution Width 13.7 % (11.5-14.5); Red Blood Cell (RBC) Count 3.71 mill/uL (4.20-5.40); White Blood Cell (WBC) Count 17.4 thou/uL (4.8-10.8)
[2021-02-10 04:34] LABS: Anion Gap 11 mmol/L (10-20); BUN (Urea Nitrogen) 24 mg/dL (9.8-20.1); Calc. Creatinine Clearance 46 mL/min (70-130); Calcium 8.6 mg/dL (7.8-10.44); Carbon Dioxide 20 mmol/L (23-31); Chloride 119 mmol/L (98-107); Glucose 108 mg/dL (83-110); Magnesium 1.9 mg/dL (1.6-2.6); Phosphorus 2.2 mg/dL (2.3-4.7); Potassium 3.5 mmol/L (3.5-5.1); Sodium 146 mmol/L (136-145)
[2021-02-10] MEDS: ceFAZolin Sodium/D5W 2 GM in Premix Bag 1 BAG IVPB SCH ×3 (05:45→22:42)
[2021-02-10 08:52] LABS: Actual Bicarbonate (HCO3a) 15.8 mEq/L (22-28); Base Excess (BEa) -4.7 mEq/L (-2.0 to +3.0); Calcium, Ionized (arterial) 1.14 mmol/L (1.12-1.30); Carboxyhemoglobin (COHb) 0.3 gm% (0.0-3.0); Hemoglobin (Hb) 11.3 g/dL (12.0-16.0); O2 Tension (PaO2), arterial 147.6 mmHg (> 70.0); Potassium - ABG Lab 3.43 mmol/L (3.70-5.30); pH, Arterial 7.54 (7.35-7.45)
[2021-02-10 08:58] LABS: CO2 Tension 18.7 mmHg (35.0-45.0); Puncture Site LRA
[2021-02-10 08:59] LABS: ALV-art Gradient 114.225 mmHg (0-20)
[2021-02-10] MEDS: Lactated Ringer's 1,000 ML IV SCH (12:22)
[2021-02-10] MEDS ORDERED: Morphine 2 MG/ML VIAL SLOW IVP PRN (15:45)
[2021-02-10] MEDS: Dexamethasone 4 mg/ml Vial SLOW IVP SCH (18:04)
[2021-02-10] MEDS: Morphine 4 MG/ML VIAL SLOW IVP PRN ×2 (18:05→20:19)
[2021-02-10] MEDS: Famotidine/PF 20 mg/2ml Vial SLOW IVP SCH (20:19)
[2021-02-10] MEDS: hydrALAZINE 20 MG/ML VIAL SLOW IVP PRN (22:00)
[2021-02-11] MEDS: Lactated Ringer's 1,000 ML IV SCH ×2 (00:09→12:01)
[2021-02-11] MEDS: Dexamethasone 4 mg/ml Vial SLOW IVP SCH ×4 (00:09→17:24)
[2021-02-11] MEDS: Acetaminophen 650 MG/20.3 ML UDCUP PO SCH ×4 (00:09→17:24)
[2021-02-11] MEDS: hydrALAZINE 20 MG/ML VIAL SLOW IVP PRN ×2 (01:34→07:46)
[2021-02-11] MEDS: Morphine 4 MG/ML VIAL SLOW IVP PRN ×3 (01:34→07:51)
[2021-02-11 04:40] LABS: #Basophils 0.1 thou/uL (0.0-0.2); #Lymphocytes 1.2 thou/uL (1.20-3.40); #Monocytes 0.3 thou/uL (0.11-0.59); #Neutrophils 13.3 thou/uL (1.40-6.50); %Basophils 0.7 % (0.0-1.0); %Eosinophils 0.2 % (0.0-10.0); %Lymphocytes 7.9 % (21.0-51.0); %Monocytes 1.9 % (0.0-10.0); %Neutrophils 89.4 % (42.0-75.0); Hemoglobin 12.1 g/dL (12.0-16.0); Mean Corpuscular HGB CONC 33.3 g/dL (32.0-36.0); Mean Corpuscular Hemoglobin 31.2 pg (27.0-31.0); Mean Corpuscular Volume 93.6 fL (78.0-98.0); Mean Platelet Volume 9.8 fL (7.4-10.4); Platelet Count 100 thou/uL (130-400); RBC Distribution Width 13.5 % (11.5-14.5); Red Blood Cell (RBC) Count 3.87 mill/uL (4.20-5.40); White Blood Cell (WBC) Count 14.9 thou/uL (4.8-10.8)
[2021-02-11 04:58] LABS: Anion Gap 15 mmol/L (10-20); BUN (Urea Nitrogen) 18 mg/dL (9.8-20.1); Calc. Creatinine Clearance 60 mL/min (70-130); Carbon Dioxide 19 mmol/L (23-31); Chloride 113 mmol/L (98-107); Potassium 3.3 mmol/L (3.5-5.1); Sodium 144 mmol/L (136-145)
[2021-02-11 04:59] LABS: Calcium 8.5 mg/dL (7.8-10.44); Glucose 147 mg/dL (83-110); Phosphorus 2.1 mg/dL (2.3-4.7)
[2021-02-11] MEDS: ceFAZolin Sodium/D5W 2 GM in Premix Bag 1 BAG IVPB SCH (06:30)
[2021-02-11] MEDS ORDERED: Potassium Phosphate 30 MMOL in Sodium Chloride 0.9% 250 ML 250 ML IVPB SCH (09:00)
[2021-02-11] MEDS: Acetaminophen W/ Codeine 5 ML UDCUP PO PRN ×2 (14:06→20:57)
[2021-02-11] MEDS: Famotidine/PF 20 mg/2ml Vial SLOW IVP SCH (20:50)
[2021-02-11] MEDS ORDERED: Haloperidol Lactate 5 MG/ML VIAL SLOW IVP SCH (22:30)
[2021-02-12] MEDS: Acetaminophen 650 MG/20.3 ML UDCUP PO SCH ×4 (00:45→19:28)
[2021-02-12] MEDS: Dexamethasone 4 mg/ml Vial SLOW IVP SCH ×5 (00:45→23:38)
[2021-02-12] MEDS: Lactated Ringer's 1,000 ML IV SCH ×2 (03:25→18:40)
[2021-02-12 06:09] LABS: #Basophils 0.1 thou/uL (0.0-0.2); #Lymphocytes 1.7 thou/uL (1.20-3.40); #Monocytes 1.1 thou/uL (0.11-0.59); #Neutrophils 15.7 thou/uL (1.40-6.50); %Basophils 0.7 % (0.0-1.0); %Eosinophils 0.1 % (0.0-10.0); %Lymphocytes 9.1 % (21.0-51.0); %Monocytes 5.9 % (0.0-10.0); %Neutrophils 84.1 % (42.0-75.0); Hemoglobin 13.6 g/dL (12.0-16.0); Mean Corpuscular HGB CONC 33.5 g/dL (32.0-36.0); Mean Corpuscular Volume 92.3 fL (78.0-98.0); Mean Platelet Volume 9.2 fL (7.4-10.4); Platelet Count 152 thou/uL (130-400); RBC Distribution Width 13.7 % (11.5-14.5); Red Blood Cell (RBC) Count 4.39 mill/uL (4.20-5.40); White Blood Cell (WBC) Count 18.6 thou/uL (4.8-10.8)
[2021-02-12 06:25] LABS: Anion Gap 14 mmol/L (10-20); BUN (Urea Nitrogen) 14 mg/dL (9.8-20.1); Calc. Creatinine Clearance 62 mL/min (70-130); Calcium 8.6 mg/dL (7.8-10.44); Carbon Dioxide 23 mmol/L (23-31); Chloride 110 mmol/L (98-107); Glucose 138 mg/dL (83-110); Sodium 144 mmol/L (136-145)
[2021-02-12 06:42] LABS: Phosphorus 1.7 mg/dL (2.3-4.7); Potassium 2.9 mmol/L (3.5-5.1)
[2021-02-12] MEDS ORDERED: Potassium Phosphate 30 MMOL in Sodium Chloride 0.9% 250 ML 250 ML IVPB SCH (09:00)
[2021-02-12] MEDS: cloNIDine 0.2mg/24 Hour PATCH TD SCH (09:26)
[2021-02-12] MEDS: hydrALAZINE 20 MG/ML VIAL SLOW IVP PRN (09:54)
[2021-02-12] MEDS: D5W-AA 4.25% with LYTES 1,000 ML IV SCH ×2 (13:44→21:59)
[2021-02-12] MEDS: Morphine 4 MG/ML VIAL SLOW IVP PRN ×2 (16:47→21:46)
[2021-02-12] MEDS: CEFAZOLIN 1 GM in Sodium Chloride 0.9% 100 ML IVPB SCH (18:42)
[2021-02-12] MEDS: Famotidine/PF 20 mg/2ml Vial SLOW IVP SCH (21:47)
[2021-02-12] MEDS: HumaLOG 300 UNITS/3 ML VIAL SC PRN (23:38)
[2021-02-13] MEDS: CEFAZOLIN 1 GM in Sodium Chloride 0.9% 100 ML IVPB SCH ×3 (02:09→18:19)
[2021-02-13] MEDS: Morphine 4 MG/ML VIAL SLOW IVP PRN ×4 (02:09→18:19)
[2021-02-13] MEDS: Acetaminophen 650 MG/20.3 ML UDCUP PO SCH ×4 (05:02→16:28)
[2021-02-13] MEDS: Dexamethasone 4 mg/ml Vial SLOW IVP SCH ×3 (05:57→18:19)
[2021-02-13 06:39] LABS: #Basophils 0.1 thou/uL (0.0-0.2); #Eosinphils 0.1 thou/uL (0.0-0.7); #Lymphocytes 1.5 thou/uL (1.20-3.40); #Monocytes 0.9 thou/uL (0.11-0.59); #Neutrophils 16.5 thou/uL (1.40-6.50); %Basophils 0.3 % (0.0-1.0); %Eosinophils 0.3 % (0.0-10.0); %Lymphocytes 7.9 % (21.0-51.0); %Monocytes 4.9 % (0.0-10.0); %Neutrophils 86.6 % (42.0-75.0); Hemoglobin 14.8 g/dL (12.0-16.0); Mean Corpuscular HGB CONC 33.7 g/dL (32.0-36.0); Mean Corpuscular Volume 92.1 fL (78.0-98.0); Platelet Count 211 thou/uL (130-400); RBC Distribution Width 13.5 % (11.5-14.5); Red Blood Cell (RBC) Count 4.77 mill/uL (4.20-5.40)
[2021-02-13 07:14] LABS: Anion Gap 15 mmol/L (10-20); BUN (Urea Nitrogen) 23 mg/dL (9.8-20.1); Calc. Creatinine Clearance 60 mL/min (70-130); Calcium 8.7 mg/dL (7.8-10.44); Carbon Dioxide 23 mmol/L (23-31); Chloride 103 mmol/L (98-107); Glucose 195 mg/dL (83-110); Magnesium 2.3 mg/dL (1.6-2.6); Phosphorus 2.3 mg/dL (2.3-4.7); Potassium 3.7 mmol/L (3.5-5.1); Sodium 137 mmol/L (136-145)
[2021-02-13] MEDS: D5W-AA 4.25% with LYTES 1,000 ML IV SCH ×2 (09:39→21:02)
[2021-02-13] MEDS: HumaLOG 300 UNITS/3 ML VIAL SC PRN ×3 (13:06→21:28)
[2021-02-13] MEDS: Famotidine/PF 20 mg/2ml Vial SLOW IVP SCH (21:03)
[2021-02-14] MEDS: Acetaminophen 650 MG/20.3 ML UDCUP PO SCH ×4 (00:18→19:34)
[2021-02-14] MEDS: Dexamethasone 4 mg/ml Vial SLOW IVP SCH ×4 (00:20→19:33)
[2021-02-14] MEDS: CEFAZOLIN 1 GM in Sodium Chloride 0.9% 100 ML IVPB SCH ×3 (03:13→19:33)
[2021-02-14] MEDS: hydrALAZINE 20 MG/ML VIAL SLOW IVP PRN (04:05)
[2021-02-14] MEDS: HumaLOG 300 UNITS/3 ML VIAL SC PRN ×3 (05:57→21:28)
[2021-02-14 06:25] LABS: Anion Gap 13 mmol/L (10-20); BUN (Urea Nitrogen) 30 mg/dL (9.8-20.1); Calc. Creatinine Clearance 59 mL/min (70-130); Calcium 8.6 mg/dL (7.8-10.44); Carbon Dioxide 22 mmol/L (23-31); Chloride 103 mmol/L (98-107); Glucose 248 mg/dL (83-110); Magnesium 2.2 mg/dL (1.6-2.6); Phosphorus 2.4 mg/dL (2.3-4.7); Potassium 3.9 mmol/L (3.5-5.1); Sodium 134 mmol/L (136-145)
[2021-02-14] MEDS: D5W-AA 4.25% with LYTES 1,000 ML IV SCH (09:04)
[2021-02-14 10:13] LABS: Hemoglobin 15.3 g/dL (12.0-16.0); Mean Corpuscular HGB CONC 35.5 g/dL (32.0-36.0); Mean Corpuscular Hemoglobin 32.7 pg (27.0-31.0); Mean Corpuscular Volume 92.4 fL (78.0-98.0); Mean Platelet Volume 8.6 fL (7.4-10.4); Platelet Count 218 thou/uL (130-400); RBC Distribution Width 13.4 % (11.5-14.5); Red Blood Cell (RBC) Count 4.67 mill/uL (4.20-5.40); White Blood Cell (WBC) Count 25.9 thou/uL (4.8-10.8)
[2021-02-14 10:33] LABS: Band 17 % (5-11); Lymphocytes 7 % (21-51); MDiff Complete? YES; Metamyelocyte 3 % (0-0); Monocytes 5 % (0-10); Neutrophil 65 % (42-75); Reactive Lymphocytes 2 % (0-10)
[2021-02-14 16:28] LABS: Magnesium 2.3 mg/dL (1.6-2.6)
[2021-02-14] MEDS: Famotidine/PF 20 mg/2ml Vial SLOW IVP SCH (21:22)
[2021-02-15] MEDS: Acetaminophen 650 MG/20.3 ML UDCUP PO SCH ×4 (00:12→18:36)
[2021-02-15] MEDS: Dexamethasone 4 mg/ml Vial SLOW IVP SCH ×4 (00:12→18:36)
[2021-02-15] MEDS: D5W-AA 4.25% with LYTES 1,000 ML IV SCH ×2 (00:12→18:49)
[2021-02-15] MEDS: CEFAZOLIN 1 GM in Sodium Chloride 0.9% 100 ML IVPB SCH ×2 (03:43→10:58)
[2021-02-15] MEDS: HumaLOG 300 UNITS/3 ML VIAL SC PRN ×3 (06:28→18:39)
[2021-02-15 10:27] LABS: Hemoglobin 14.8 g/dL (12.0-16.0); Mean Corpuscular Hemoglobin 30.4 pg (27.0-31.0); Mean Corpuscular Volume 92.2 fL (78.0-98.0); Mean Platelet Volume 8.8 fL (7.4-10.4); Platelet Count 212 thou/uL (130-400); RBC Distribution Width 13.5 % (11.5-14.5); Red Blood Cell (RBC) Count 4.86 mill/uL (4.20-5.40); White Blood Cell (WBC) Count 24.8 thou/uL (4.8-10.8)
[2021-02-15 10:51] LABS: Anion Gap 16 mmol/L (10-20); BUN (Urea Nitrogen) 32 mg/dL (9.8-20.1); Calc. Creatinine Clearance 57 mL/min (70-130); Calcium 8.9 mg/dL (7.8-10.44); Carbon Dioxide 18 mmol/L (23-31); Chloride 104 mmol/L (98-107); Glucose 197 mg/dL (83-110); Magnesium 2.1 mg/dL (1.6-2.6); Phosphorus 2.7 mg/dL (2.3-4.7); Potassium 4.5 mmol/L (3.5-5.1); Sodium 133 mmol/L (136-145)
[2021-02-15 11:35] LABS: Band 6 % (5-11); Lymphocytes 4 % (21-51); MDiff Complete? YES; Neutrophil 83 % (42-75); Platelet Morphology Comment Appears Adequate; RBC Morphology Normal; Reactive Lymphocytes 7 % (0-10)
[2021-02-15] MEDS ORDERED: cefTRIAXone\\ROCEPHIN 2 GM in Sodium Chloride 0.9% 100 ML IVPB SCH (17:45)
[2021-02-15] MEDS: Morphine 4 MG/ML VIAL SLOW IVP PRN (21:57)
[2021-02-15] MEDS: Famotidine/PF 20 mg/2ml Vial SLOW IVP SCH (21:57)
[2021-02-16] MEDS: Dexamethasone 4 mg/ml Vial SLOW IVP SCH ×2 (00:27→05:05)
[2021-02-16] MEDS: Acetaminophen 650 MG/20.3 ML UDCUP PO SCH ×4 (00:28→17:20)
[2021-02-16 05:57] LABS: Hemoglobin 15.1 g/dL (12.0-16.0); Mean Corpuscular HGB CONC 34.6 g/dL (32.0-36.0); Mean Corpuscular Hemoglobin 31.7 pg (27.0-31.0); Mean Corpuscular Volume 91.4 fL (78.0-98.0); Mean Platelet Volume 8.5 fL (7.4-10.4); Platelet Count 232 thou/uL (130-400); RBC Distribution Width 13.3 % (11.5-14.5); Red Blood Cell (RBC) Count 4.75 mill/uL (4.20-5.40); White Blood Cell (WBC) Count 23.5 thou/uL (4.8-10.8)
[2021-02-16 06:19] LABS: Anion Gap 16 mmol/L (10-20); BUN (Urea Nitrogen) 25 mg/dL (9.8-20.1); Calc. Creatinine Clearance 57 mL/min (70-130); Calcium 8.3 mg/dL (7.8-10.44); Carbon Dioxide 20 mmol/L (23-31); Chloride 106 mmol/L (98-107); Glucose 163 mg/dL (83-110); Magnesium 2.2 mg/dL (1.6-2.6); Phosphorus 3.1 mg/dL (2.3-4.7); Potassium 4.1 mmol/L (3.5-5.1); Sodium 138 mmol/L (136-145)
[2021-02-16 06:37] LABS: Band 4 % (5-11); Lymphocytes 5 % (21-51); MDiff Complete? YES; Monocytes 12 % (0-10); Myelocyte 1 % (0-0); Neutrophil 78 % (42-75)
[2021-02-16] MEDS ORDERED: cefTRIAXone\\ROCEPHIN 1 GM in Sodium Chloride 0.9% 100 ML IVPB SCH (09:00)
[2021-02-16] MEDS: Famotidine 20 MG TAB PO SCH ×2 (12:01→20:24)
[2021-02-16] MEDS ORDERED: Magnesium Citrate 300 ML BOT PO SCH (14:15)
[2021-02-16 14:47] LABS: SARS-CoV-2 PCR by NAA Not Detected (NotDetected)
[2021-02-16] MEDS: Acetaminophen W/ Codeine 5 ML UDCUP PO PRN (16:57)
[2021-02-17] MEDS: Acetaminophen W/ Codeine 5 ML UDCUP PO PRN ×2 (00:06→10:16)
[2021-02-17] MEDS: Acetaminophen 650 MG/20.3 ML UDCUP PO SCH ×4 (00:26→19:37)
[2021-02-17 05:17] LABS: Hemoglobin 14.6 g/dL (12.0-16.0); Mean Corpuscular Hemoglobin 30.3 pg (27.0-31.0); Mean Corpuscular Volume 91.8 fL (78.0-98.0); Mean Platelet Volume 8.2 fL (7.4-10.4); Platelet Count 221 thou/uL (130-400); RBC Distribution Width 13.2 % (11.5-14.5); Red Blood Cell (RBC) Count 4.81 mill/uL (4.20-5.40); White Blood Cell (WBC) Count 21.1 thou/uL (4.8-10.8)
[2021-02-17 05:43] LABS: Band 8 % (5-11); Lymphocytes 19 % (21-51); MDiff Complete? YES; Monocytes 5 % (0-10); Neutrophil 68 % (42-75)
[2021-02-17] MEDS: Famotidine 20 MG TAB PO SCH (09:31)
[2021-02-17] MEDS ORDERED: Morphine IR Tab 15 MG TAB PO PRN ×2 (15:41→15:43)
[2021-02-17] MEDS: Gabapentin 300 MG CAP PO SCH (21:10)
[2021-02-18] MEDS: Acetaminophen 650 MG/20.3 ML UDCUP PO SCH ×5 (01:15→23:35)
[2021-02-18] MEDS: Gabapentin 300 MG CAP PO SCH ×4 (08:30→21:38)
[2021-02-19] MEDS: Acetaminophen 650 MG/20.3 ML UDCUP PO SCH ×3 (05:48→16:57)
[2021-02-19] MEDS: Gabapentin 300 MG CAP PO SCH ×3 (09:19→20:49)
[2021-02-19] MEDS: cloNIDine 0.2mg/24 Hour PATCH TD SCH (09:21)
[2021-02-19 14:14] VITALS: BMI 21.9
[2021-02-20] MEDS: Acetaminophen 650 MG/20.3 ML UDCUP PO SCH ×3 (00:02→08:49)
[2021-02-20 07:43] VITALS: BP 101/76; TEMP 98.2
[2021-02-20] MEDS: Gabapentin 300 MG CAP PO SCH (08:51)
== END 2021-02-20 10:13 | DRG 82 ==
LOC: ERS 14:07 → ERHOLD 14:46 → CCU 19:18 → SURG A 02-11 13:03
PROVIDERS: ADMIT Surgery; ATTEND Surgery
PROC: 5A1945Z Respiratory Ventilation, 24-96 Consecutive Hours (ICD-10-PCS; principal; 2021-02-08)
PROC: 0BH17EZ Insertion of Endotracheal Airway into Trachea, Via Natural or Artificial Opening (ICD-10-PCS; 2021-02-08)
PROC: 0D9670Z Drainage of Stomach with Drainage Device, Via Natural or Artificial Opening (ICD-10-PCS; 2021-02-08)
PROC: 06HY33Z Insertion of Infusion Device into Lower Vein, Percutaneous Approach (ICD-10-PCS; 2021-02-08)
PROC: 30233N1 Transfusion of Nonautologous Red Blood Cells into Peripheral Vein, Percutaneous Approach (ICD-10-PCS; 2021-02-08)
PROC: 02HV33Z Insertion of Infusion Device into Superior Vena Cava, Percutaneous Approach (ICD-10-PCS; 2021-02-10)
PROC: 03HY32Z Insertion of Monitoring Device into Upper Artery, Percutaneous Approach (ICD-10-PCS; 2021-02-10)
PROC: 3E0336Z Introduction of Nutritional Substance into Peripheral Vein, Percutaneous Approach (ICD-10-PCS; 2021-02-12)
PROC: 3E0G76Z Introduction of Nutritional Substance into Upper GI, Via Natural or Artificial Opening (ICD-10-PCS; 2021-02-15)
DX: S06.6X9A Traumatic subarachnoid hemorrhage with loss of consciousness of unspecified duration, initial encounter (principal); J96.00 Acute respiratory failure, unspecified whether with hypoxia or hypercapnia; E87.0 Hyperosmolality and hypernatremia; F11.23 Opioid dependence with withdrawal; Z20.822 Contact with and (suspected) exposure to COVID-19; Z23 Encounter for immunization; S01.83XA Puncture wound without foreign body of other part of head, initial encounter; G89.29 Other chronic pain; M54.9 Dorsalgia, unspecified; E78.00 Pure hypercholesterolemia, unspecified; K21.9 Gastro-esophageal reflux disease without esophagitis; F17.210 Nicotine dependence, cigarettes, uncomplicated; E78.5 Hyperlipidemia, unspecified; E83.42 Hypomagnesemia; E83.39 Other disorders of phosphorus metabolism; R40.2142 Coma scale, eyes open, spontaneous, at arrival to emergency department; R40.2332 Coma scale, best motor response, abnormal flexion, at arrival to emergency department; R40.2222 Coma scale, best verbal response, incomprehensible words, at arrival to emergency department; E87.6 Hypokalemia; R45.1 Restlessness and agitation; T38.0X5A Adverse effect of glucocorticoids and synthetic analogues, initial encounter; D72.829 Elevated white blood cell count, unspecified; Z78.1 Physical restraint status; Z86.73 Personal history of transient ischemic attack (TIA), and cerebral infarction without residual deficits; Z90.49 Acquired absence of other specified parts of digestive tract; Z90.710 Acquired absence of both cervix and uterus; Z90.89 Acquired absence of other organs; Y92.009 Unspecified place in unspecified non-institutional (private) residence as the place of occurrence of the external cause; Z79.899 Other long term (current) drug therapy; Z88.0 Allergy status to penicillin; I10 Essential (primary) hypertension; G62.9 Polyneuropathy, unspecified
CPT/HCPCS: 31500; 36415; 36416; 36430; 36556; 36600; 51702; 70450; 70496; 70498; 71045; 72125; 74230; 80048; 80053; 80306; 80307; 81003; 81015; 82805; 83036; 83605; 83735; 84100; 85007; 85025; 85027; 85610; 85730; 86850; 86900; 86901; 87040; 87086; 90471; 90715; 93005; 93010; 93970; 94002; 94003; 96365; 96366; 96367; 96375; 96376; 99283; 99292; G0390; J0360; J0690; J0696; J1100; J1630; J1815; J2060; J2250; J2270; J2405; J2704; J3010; J3475; J3490; J7030; J7050; J7120; P9016; P9045; Q9967; S0028; U0002; U0003; U0005